=== PATIENT | male | born 1945 ===

== ENCOUNTER 2021-08-18 03:48 | Inpatient (IN) | payer MEDICARE, OTHER ==
[~2021-08-18] VITALS: Wt 71.5 kg
[2021-08-18 05:41] LABS: BASOPHILS ABSOLUTE AUTO 0.03 K/mm3 (0.00-0.23); BASOPHILS PERCENT AUTO 0 % (0-2); Hematocrit 42.1 % (37.0-53.0); Hemoglobin 13.3 g/dL (13.5-17.5); LYMPHOCYTES ABSOLUTE AUTO 0.45 K/mm3 (0.84-5.20); LYMPHOCYTES PERCENT AUTO 3 % (21-46); MONOCYTES ABSOLUTE AUTO 0.42 K/mm3 (0.16-1.47); MONOCYTES PERCENT AUTO 3 % (4-13); Mean Corpuscular HGB 31.7 pg (26.0-34.0); Mean Corpuscular HGB Conc 31.6 g/dL (31.5-36.5); Mean Corpuscular Volume 101 fL (80-100); Platelet Count 127 K/mm3 (150-400); RDW Coefficient Variation 13.3 % (11.7-14.2); RDW Standard Deviation 49.5 fL (35.1-46.3); Red Blood Cell Count 4.19 M/mm3 (4.30-5.90); White Blood Cell Count 15.37 K/mm3 (4.00-11.30)
[2021-08-18 05:50] LABS: EOSINOPHILS PERCENT AUTO 0 % (0-6); IMMATURE GRAN ABSOLUTE AUTO 0.09 K/mm3 (0.00-0.10); IMMATURE GRAN PERCENT AUTO 1 % (0-1); NEUTROPHILS ABSOLUTE AUTO 14.38 K/mm3 (1.96-9.15); NEUTROPHILS PERCENT AUTO 94 % (41-73)
--- NOTE | 2021-08-18 05:53 | NUR ---
PATIENT IS A DIRECT ADMIT FROM [facility]. THREE PERSON TRANSFER FROM [facility] TO BED. ON 4L O2 NC. AXO X 1-2 NONVERBAL AND MECHOOPDA/DEAF PER REPORT. DR FOURNIER IN ROOM FOR ASSESSMENT AND TO PLACE ORDERS. NPO. HX OF FX LEFT HUMERUS. REPORT PATIENT FROM [facility]. SOB W/EXERTION. PAIN WITH MOVEMENT OF LEFT ARM. ORIENTED TO ROOM AND CALL LIGHT SYSTEM. CALL LIGHT IN REACH. WCTM.
[2021-08-18 06:03] LABS: BAND PERCENT MAN 1 % (0-8); BASOPHILS PERCENT MAN 0 % (0-2); EOSINOPHILS PERCENT MAN 0 % (0-6); LYMPHOCYTES ABSOLUTE MAN 0.92 K/mm3 (0.84-5.20); LYMPHOCYTES PERCENT MAN 6 % (21-46); MONOCYTES ABSOLUTE MAN 0.15 K/mm3 (0.16-1.47); MONOCYTES PERCENT MAN 1 % (4-13); NEUTROPHILS ABSOLUTE MAN 14.29 K/mm3 (1.96-9.15); SEG NEUTROPHILS PERCENT MAN 92 % (41-73); TOTAL CELLS COUNTED 100
[2021-08-18 06:16] LABS: Albumin, Blood 3.3 g/dL (3.4-5.0); Albumin/Globulin Ratio 0.8 (0.8-1.8); Bilirubin, Total 0.6 mg/dL (0.1-1.0); Bun/Creatinine Ratio 22.3 (12.0-20.0); Calcium, Blood 8.9 mg/dL (8.5-10.1); Creatinine, Blood 1.39 mg/dL (0.60-1.20); Potassium, Blood 3.8 mmol/L (3.5-5.5); Total Protein, Blood 7.3 g/dL (6.4-8.2)
--- NOTE | 2021-08-18 06:44 | NUR ---
TELEMETRY PLACED AND TECH REPORTS NSR 67. NS INFUSING AT 75mL/HR X ONE. cH TROPONIN 131 PER LAB.
--- NOTE | 2021-08-18 07:57 | NUR ---
RN recvd handoff of patient care from DARNELL Philippe Patient was asleep and did not appear to be in any distress
[2021-08-18 10:08] LABS: Source, Urine Straight Cath
[2021-08-18 10:12] LABS: Appearance, Urine Clear (Clear); Bilirubin, Urine Neg (Neg); Blood, Urine Neg (Neg); Color, Urine Yellow (P-Yellow); Glucose Qualitative, Urine Neg (Neg); Ketones, Urine Neg (Neg); Leukocyte Esterase, Urine Neg (Neg); Nitrite, Urine Neg (Neg); Protein, Urine 1+ (Neg); Urobilinogen, Urine NORM (Normal)
[2021-08-18 13:56] LABS: Influenza A, PCR NEGATIVE (NEGATIVE); Influenza B, PCR NEGATIVE (NEGATIVE); Resp Syncytial Virus, PCR NEGATIVE (NEGATIVE); SARS-Cov-2 (COVID-19) PCR, MMC NEGATIVE (NEGATIVE)
[2021-08-18 14:50] LABS: CPK Creatine Kinase 202 U/L (39-308)
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
--- NOTE | 2021-08-18 16:03 | NUR ---
Patient was alert and orient, was nonverbal but able to read lips. Patient was pleasant upon approach. He had several tests performed including xray, covid swab, and urine culture. Both Covid and Influenza A/B were negative. Patient was able to understand staff lips. Patient had fluids running 75ml x1 bag then discontinue. Patient had no complaints of pain and had no further requests at this time.
[2021-08-18 21:27] LABS: CPK Creatine Kinase 226 U/L (39-308)
--- NOTE | 2021-08-19 02:28 | NUR ---
TELE STATES PATIENT HAD A 3.5 SEC PAUSES AND A 2.1 SECOND PAUSE THIS EVENING. THEY ALSO STATE THAT SINCE PAUSES HAVE STOPPED, HE SUSTAINS IN THE 40-50 HR RANGE, WITH HIS NORMAL BEING MID 60 - HIGH 70 RANGE. PATIENT BLOOD PRESSURE IS STABLE AT THIS TIME. NO CHANGE IN CONDITION NOTED AT THIS TIME. PER IRLANDA SMITH, MONITOR PATIENT FOR CHANGES.
[2021-08-19 05:10] LABS: Hematocrit 42.4 % (37.0-53.0); Hemoglobin 13.2 g/dL (13.5-17.5); Mean Corpuscular HGB 31.4 pg (26.0-34.0); Mean Corpuscular HGB Conc 31.1 g/dL (31.5-36.5); Mean Corpuscular Volume 101 fL (80-100); Platelet Count 148 K/mm3 (150-400); RDW Coefficient Variation 13.4 % (11.7-14.2); RDW Standard Deviation 50.3 fL (35.1-46.3); Red Blood Cell Count 4.21 M/mm3 (4.30-5.90); White Blood Cell Count 14.34 K/mm3 (4.00-11.30)
[2021-08-19 05:30] LABS: Albumin, Blood 2.9 g/dL (3.4-5.0); Albumin/Globulin Ratio 0.7 (0.8-1.8); Bilirubin, Total 0.4 mg/dL (0.1-1.0); Calcium, Blood 9.2 mg/dL (8.5-10.1); Creatinine, Blood 1.18 mg/dL (0.60-1.20); Globulin, Blood 4.1 g/dL (2.2-4.0); Potassium, Blood 4.9 mmol/L (3.5-5.5)
--- NOTE | 2021-08-19 06:33 | NUR ---
PATIENT IS A RESIDENT AT [facility]. HE CAME TO US FROM [facility] WTH SOB, FEVER AND HYPOXIA. TROPONINS WERE 134 AND 162. TELE CALLED TWICE DURING SHIFT STATING HE HAD PAUSES OF 2.1 AND 3.5 SECONDS. HOPITALIST ON DUTY AWARE AND STATED TO MONITOR SINCE HIS BP WAS STABLE AND HAD NO SYMPTOMS CHANGES. HE IS NONVERBAL BUT CAN READ LIPS. HARD TO UNDERSTAND HIS NEEDS FROM HIS GROANS. HE IS NOW EATING A PUREED DIET SO HE IS ACHS CHECKS INSTEAD OF Q6H. PLAN IS TO EVENTUALLY GET HIM BACK TO [facility] WITH [facility].
--- NOTE | 2021-08-19 15:10 | NUR ---
Patient was alert and orient. He was in good spirits, no complaints of pain. He sat in the chair for at least an hour. He continued to be a feeder and assist of 1 with transfers. His glocose levels were WNL. He was continent of bowel and bladder but didnt have a BM today. He will possible discharge tomorrow.
[2021-08-20 05:37] LABS: Hematocrit 41.6 % (37.0-53.0); Hemoglobin 12.7 g/dL (13.5-17.5); Mean Corpuscular HGB 30.9 pg (26.0-34.0); Mean Corpuscular HGB Conc 30.5 g/dL (31.5-36.5); Mean Corpuscular Volume 101 fL (80-100); Mean Platelet Volume 10.8 fL (9.1-12.4); Platelet Count 165 K/mm3 (150-400); RDW Coefficient Variation 13.4 % (11.7-14.2); RDW Standard Deviation 50.1 fL (35.1-46.3); Red Blood Cell Count 4.11 M/mm3 (4.30-5.90); White Blood Cell Count 8.52 K/mm3 (4.00-11.30)
[2021-08-20 06:07] LABS: Alanine Aminotransfer (ALT/SGP 30 U/L (12-78); Albumin, Blood 2.8 g/dL (3.4-5.0); Albumin/Globulin Ratio 0.8 (0.8-1.8); Alk Phos 94 U/L (50-136); Anion Gap 4 mmol/L (6-16); Aspartate Aminotrans (AST/SGOT 26 U/L (12-37); Bilirubin, Total 0.3 mg/dL (0.1-1.0); Blood Urea Nitrogen 31 mg/dL (8-24); Bun/Creatinine Ratio 27.2 (12.0-20.0); CO2, Blood 28 mmol/L (21-32); Calcium, Blood 8.6 mg/dL (8.5-10.1); Chloride, Blood 111 mmol/L (98-108); Creatinine, Blood 1.14 mg/dL (0.60-1.20); Globulin, Blood 3.3 g/dL (2.2-4.0); Glomerular Filtration Rate >60 (60-); Glucose, Blood 91 mg/dL (70-99); Potassium, Blood 4.4 mmol/L (3.5-5.5); Sodium, Blood 143 mmol/L (136-145); Total Protein, Blood 6.1 g/dL (6.4-8.2)
--- NOTE | 2021-08-20 06:14 | NUR ---
PATIENT HAS MENTAL DELAY AND IS NON-VERBAL. HE IS ABLE TO READ LIPS AND CAN LET YOU KNOW WHEN HE HAS PEED. HE IS INCONTINENT. WE WERE ABLE TO GET HIM TO THE BEDSIDE COMMODE WITH 2 PERSON ASSIST. HAS SOME LEFT SHOULDER PAIN BUT SEEMS TO BE VERY MILD. 1:1 FEEDING FOR MEALS. IS EXPECTED TO DC BACK TO [facility] TODAY.
--- NOTE | 2021-08-20 10:26 | NUR ---
At, 0645, RN recvd handoff of patient care from DARNELL Beck Patient was in bed asleep, did not appear to be in any distress
[2021-08-20] MEDS ORDERED: Celexa20 MG PO (11:14)
[2021-08-20] MEDS ORDERED: Lovastatin20 MG PO (11:15)
[2021-08-20] MEDS ORDERED: MIRT15 PO (11:15)
[2021-08-20] MEDS ORDERED: DOCUZEN 8.6-501 EACH PO (11:16)
[2021-08-20] MEDS ORDERED: [UNRECOGNIZED DRUG - OTHER] TOP (11:17)
[2021-08-20] MEDS ORDERED: AQUAPHOR ITCH R28 GM TOP (11:18)
[2021-08-20] MEDS ORDERED: HYDROCORTISONE 1% TOP (11:20)
[2021-08-20] MEDS ORDERED: KETO15TC TOP (11:21)
[2021-08-20] MEDS ORDERED: ACET500 PO (11:22)
--- NOTE | 2021-08-20 11:36 | NUR ---
Patient will be discharged to his facility today. He was alert and orient, not completely nonverbal as he could answer in one or two words. Patient slept ok last evening without incidence. No complaints of pain, uses brief for incontinence and does ask to use BSC. Patient appetite was 75% for meals and needed assistance with feeding. Cont to monitor
[2021-08-20] MEDS ORDERED: ALBU90OI INH (12:22)
[2021-08-20] MEDS ORDERED: LEVO750 PO (12:22)
[2021-08-20] MEDS ORDERED: Prednisone10 MG PO (12:22)
[2021-08-20] MEDS ORDERED: SPIRIVA RESPIMAT4 G3 INH (12:23)
--- NOTE | 2021-08-20 16:15 | NUR ---
Patient was alert and orient and was discharged back to the facility today. He was assisted by EMT drivers. RN will call and give report to Luanne (Morning Show Host) [phone] over at [facility].
== END 2021-08-20 16:10 | disposition home or self-care (01) | DRG 193 ==
LOC: MEDS 03:48 → ENPENDDIS 08-20 11:22 → MEDS 08-20 16:10
PROVIDERS: Internal Medicine; ADMIT Internal Medicine
DX: J18.9 Pneumonia, unspecified organism (principal); J96.01 Acute respiratory failure with hypoxia; J44.0 Chronic obstructive pulmonary disease with (acute) lower respiratory infection; I50.22 Chronic systolic (congestive) heart failure; F17.210 Nicotine dependence, cigarettes, uncomplicated; F32.A Depression, unspecified; I11.0 Hypertensive heart disease with heart failure; E10.40 Type 1 diabetes mellitus with diabetic neuropathy, unspecified; Z20.822 Contact with and (suspected) exposure to COVID-19; Z86.73 Personal history of transient ischemic attack (TIA), and cerebral infarction without residual deficits; Z88.8 Allergy status to other drugs, medicaments and biological substances; Z88.1 Allergy status to other antibiotic agents
CPT/HCPCS: 0241U; 36415; 71045; 80053; 82550; 82947; 83605; 83880; 84484; 85025; 85027; 87040; 92610; 93005; 93010; 93306; 94760; 94761; 97162; 97530; A9270; J0456; J0696; J1650; J7030; J7050